=== PATIENT | male | born 2000 | race Caucasian/White ===

== ENCOUNTER 2024-01-02 17:56 | Emergency (ER) | payer OTHER ==
[~2024-01-02] VITALS: Ht 180.3 cm; Wt 95.2 kg
[2024-01-02 17:57] VITALS: BP 154/95; TEMP 97.2; O2SAT 98
[2024-01-02] MEDS: FLUORESCEIN OPHTH 1MG STRIP OS ONE (20:51)
[2024-01-02] MEDS ORDERED: TETRACAINE 0.5% OPHTH SOLN 4ML As Ordered ONE (20:52)
[2024-01-02] MEDS: TETRACAINE 0.5% OPHTH SOLN 4ML OS ONE (20:53)
[2024-01-02] MEDS ORDERED: CIPR0.3S37 OS (21:02)
[2024-01-02] MEDS: CIPROFLOXACIN 0.3% OPHTH SOLN 2.5ML OS ONE (21:07)
== END 2024-01-02 21:14 | disposition home or self-care (01) ==
LOC: M ED 17:56
DX: S05.02XA Injury of conjunctiva and corneal abrasion without foreign body, left eye, initial encounter (principal); X58.XXXA Exposure to other specified factors, initial encounter; Y92.9 Unspecified place or not applicable; Y93.9 Activity, unspecified; Y99.9 Unspecified external cause status